=== PATIENT | female | born 1965 | race Caucasian/White ===

== ENCOUNTER 2019-01-16 00:24 | Inpatient (IN) ==
[2019-01-16] MEDS ORDERED: 0.9 % Sodium Chloride 500 ML IVC ONE (00:35)
[2019-01-16] MEDS ORDERED: Ondansetron 4 MG/2 ML VIAL IVP ONE (00:35)
[2019-01-16] MEDS ORDERED: Nitroglycerin 0.4 MG TAB.SUBL SL ONE (00:38)
--- NOTE | 2019-01-16 00:50 | Emergency Department Note ---
Disposition Clinical Impression: Lactic acidosis, Elevated troponin, Elevated liver enzymes, Abnormal CT scan Anemia Qualifiers: Anemia type: unspecified type Qualified Code(s): D64.9 - Anemia, unspecified Chest pain Qualifiers: Chest pain type: unspecified Qualified Code(s): R07.9 - Chest pain, unspecified Community acquired pneumonia Qualifiers: Laterality: right Lung location: lower lobe of lung Qualified Code(s): J18.1 - Lobar pneumonia, unspecified organism Disposition: Admitted As Inpatient Condition: Serious Time of Disposition: 06:10 Chest Pain HPI - General Chief Complaint: ED Chest Pain Stated Complaint: CP/SOB Time Seen by Provider: 01/16/19 00:26 Source: patient, family Mode of arrival: private vehicle Limitations: no limitations Vital Signs Reviewed: Yes Nursing Notes Reviewed: Yes - History of Present Illness HPI Narrative: Patient with Hx of AAA and COPD presents to ED for eval of chest pain. Pain began in the shoulder yesterday and in the chest three days ago. She describes it as a dull pressure sensation with intermittent sharp stabbing pain. This afternoon she also has had epigastric pain and nausea. She describes feeling a little mores short of breath than usual and has had a cough. She states that she has had the cough for about a year though. No recent fever, chills, vomiting, diarrhea, dizziness, vertigo or confusion. No recent med changes. Uses inhalers daily. No change in sputum. No recent travel, leg pain or swelling. Pt complaint: chest pain Onset (ago): day(s) (shoulder pain yesterday. Chest and shoulder today) Duration: intermittent, gradually worsening Onset: during rest, during exertion Pain Location: substernal Severity: severe Severity scale (1-10): 9 Quality: aching, heaviness, sharp Pain Radiation: RUE (shoulder) Improves with: nothing Worsens with: nothing Context: other (vasculopath - hx of AAA, s/p repair in 2009) Associated symptoms: Reports: nausea, dyspnea (a little worse than usual), cough ("for over a year"). Denies: vomiting, diaphoresis, sense of impending doom, syncope, palpitations, fever, leg swelling Treatments prior to arrival chest pain: none - Related Data On Oral Contraceptives: No Home Medications Medication Instructions Recorded Confirmed Aspirin 325 PO DAILY 01/16/19 Clopidogrel 75 PO DAILY 01/16/19 Cyclobenzaprine 10 PO HS PRN 01/16/19 Diclofenac Sodium 75 PO BID 01/16/19 Fish Oil 1,000 PO DAILY 01/16/19 Gabapentin 800 PO TID 01/16/19 Garlic 1,000 PO DAILY 01/16/19 Niacin 500 PO DAILY 01/16/19 Simvastatin 80 PO DAILY 01/16/19 Ventolin Hfa PRN 01/16/19 01/16/19 Vit E/Vit E Mx/Squal/Phytostrl 670 PO DAILY 01/16/19 Vitamin B Complex 100 PO DAILY 01/16/19 Vitamin E, Vitamin A,and Vit D 5,000 PO DAILY 01/16/19 rOPINIRole 2 PO HS 01/16/19 Previous Rx's Medication Instructions Recorded Meclizine HCl [Verticalm] 25 mg PO TID PRN #15 tablet 01/23/17 Allergies Allergy/AdvReac Type Severity Reaction Status Date / Time morphine Allergy Nausea Verified 07/03/15 09:17 All systems ED: reviewed and negative except as stated. Review of Systems: As Per HPI Constitutional: Denies: fever, chills, weakness Eyes: Denies: eye pain, eye discharge, vision change ENT ED: Denies: ear pain, throat pain, congestion, dysphagia Cardiovascular: Reports: as per HPI, chest pain, palpitations, dyspnea on exertion, edema ("feet have been swelling a little"). Denies: orthopnea, syncope, paroxysmal nocturnal dyspnea Respiratory: Reports: as per HPI, cough, dyspnea. Denies: wheezes, hemoptysis, stridor, sputum production Gastrointestinal: Reports: abdominal pain ("a little bit" points to the Epigastrium), nausea. Denies: vomiting, diarrhea, constipation, hematemesis, melena, hematochezia Genitourinary: Denies: urgency, dysuria, frequency, hematuria Musculoskeletal: Denies: back pain, neck pain, joint swelling, arthralgia Integumentary: Denies: rash, lesions Neurological: Denies: headache, weakness, vertigo Endocrine: Denies: fatigue Hematological/Lymphatic: Reports: easy bruising (on plavix) Chest Pain PMH - Past Medical History Medical history: Reports: aortic aneurysm, COPD, coronary artery disease, other Reports: Aortic Disease Surgical history: Reports: vascular surgery Psychiatric history: Reports: no psych history Prior Cardiac Testing/Procedures: Stress Test 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 Absent: scleral icterus, conjunctival injection, periorbital swelling - ENT ENT exam: normal oropharynx, mucous membranes moist - Neck Neck exam: Present: normal inspection, full ROM, trachea midline. Absent: meningismus - Chest Chest inspection: Present: normal inspection, symmetric chest wall rise. Absent: tenderness - Respiratory Respiratory exam: Present: wheezes (faint, end expiratory). Absent: respiratory distress, stridor, accessory muscle use, prolonged expiratory phase - Cardiovascular Cardiovascular exam: Present: normal rhythm, tachycardia, normal heart sounds - Abdominal Exam Abdominal exam: Present: soft, Non-Tender, scar (WHSS xiphoid to pubic symphysis). Absent: distention, guarding, rebound, rigidity, trauma, Monteiro's sign, tenderness at McBurney's Point, mass, bruit, pulsatile mass - Extremities Exam Extremities exam: Present: normal inspection, full ROM, normal capillary refill. Absent: pedal edema (Symmetric, non-edematous), joint swelling, calf tenderness - Expanded Lower Extremity Exam Gait: not tested/not observed - Back Exam Back exam: Present: normal inspection. Absent: tenderness, CVA tenderness (R), CVA tenderness (L) - Neurological Exam Neurological exam: Present: alert, oriented X3, CN II-XII intact. Absent: motor sensory deficit - Psychiatric Psychiatric exam: Present: normal affect, normal mood - Skin Skin exam: Present: warm, dry, intact, normal color Course Course Narrative: Patient with hx of AAA and COPD presented to ED with son for eval of chest pain. She was brought back to room 4, placed on monitor, examined and ECG obtained. Patient appears very pale and is tachycardic in the 120's. She c/o chest pain, abdominal pain and dyspnea, but is able to speak in complete sentences without pausing to breath. She is not tachypneic and does not appear to be in any distress. Labs, meds and fluids ordered. Case discussed with Dr. Robertson. Patient's ECG shows sinus tach with normal intervals. No ST elevation. ST depression in several leads. This appears to be new c/o tracing from 01/22/17. Given her hx of AAA and current complaints of chest and epigastric pain, I am hesitant to order ASA. Her BP is 109 systolic and her ECG shows new ST depression in inferior, septal and lateral leads. She is complaining of increasing chest pain and is requesting something for pain. Discussed options with Dr. Robertson. He recommends trying One SL NTG. Repeat BP just prior to giving the NTG was 94/57. Will hold the NTG. Patient's pain is better. At this point she has had 500ml of NS. Heart rate is improved but still tachy. Sats a little improved - 95% CXR shows bibasilar airspace disease and bilateral pleural effusions. Normal mediastinum. Lactic acid is 4.1 and trop is 0.14 CTA read by rad as right lower lobe infiltrate. BCx2 and ABX ordered. Patient has not been hospitalized in the past 6 months. Lab is unable to report results of CBC despite repeat draw, spin down and several other techniques. They estimate the Hgb to be between 3.8 and 5.3 and hematocrit around 21. They recommend giving the patient blood and then re-drawin g. Case discussed with Dr. Stringer and Dr. Delatorre. They request that the [employer] and Vascular Surgeon electronics warfare technician be consulted by us. Case discussed with Dr. Roy. Read the CTA report for his review and rachel's. He states that he will see the patient in house. Case discussed with Dr. Patel. He states that the troponin leak is most likely second to the anemia - < 7 can cause a leak. He further states that the Vital Signs Temperature 98.2 F 01/16/19 00:25 Pulse Rate 103 01/16/19 00:25 Respiratory Rate 18 01/16/19 00:25 Blood Pressure 105/69 01/16/19 00:25 O2 Sat by Pulse Oximetry 98 01/16/19 00:25 Temperature 98.7 F 01/16/19 16:14 Pulse Rate 120 01/16/19 16:14 Respiratory Rate 20 01/16/19 16:14 Blood Pressure 100/76 01/16/19 16:14 O2 Sat by Pulse Oximetry 98 01/16/19 16:14 Oxygen Delivery Oxygen Delivery Nasal Cannula Chest Pain - Medical Records Medical records reviewed: Yes I reviewed the patient's medical records. - Lab Data Lab results reviewed: Yes I reviewed the patient's lab results. Result diagrams: 01/16/19 13:48 01/16/19 00:30 Lab Results 01/16/19 01/16/19 01/16/19 Range/Units 00:30 00:30 00:30 WBC (4.3-11.1) K/mcL RBC (3.82-4.97) M/mcL Hgb (11.5-15.4) g/dL Hct (35.3-44.9) % MCV (83.0-100.0) fL MCH (28.0-33.3) pg MCHC (31.6-35.5) g/dL RDW (11.5-14.5) % Plt Count (140-400) K/mcL MPV (9.4-12.4) fL Immature Gran % (0-4) % Seg Neutrophils % % Lymphocytes % % Monocytes % % Eosinophils % % Basophils % % Neutrophils # (1.6-8.9) K/mcL Lymphocytes # (0.6-4.6) K/mcL Monocytes # (0.0-1.3) K/mcL Eosinophils # (0.0-0.6) K/mcL Basophils # (0.0-0.2) K/mcL Nucleated RBCs/100 WBC (0) /100 WBC Platelet Estimate (Normal) Hypochromasia (Not Present) Anisocytosis (Not Present) Microcytosis (Not Present) PT 15.0 H (9.4-12.1) Seconds INR 1.3 APTT (26.0-36.0) Seconds Sodium 139 (136-145) mEq/L Potassium 3.9 (3.5-5.1) mEq/L Chloride 109 H (98-107) mEq/L Carbon Dioxide 17 L (23-29) mEq/L BUN 20 (6-20) mg/dL Creatinine 0.95 (0.60-1.20) mg/dL Est GFR ( Amer) > 60 (> 60) Est GFR (Non-Af Amer) > 60 (> 60) BUN/Creatinine Ratio 21 (6-26) Glucose 108 H (70-105) mg/dL Calculated Osmolality 291 (280-300) Lactic Acid (0.5-2.2) mmol/L Calcium 8.7 (8.6-10.3) mg/dL Total Bilirubin 0.8 (0.3-1.0) mg/dL Direct Bilirubin 0.2 (0.0-0.2) mg/dL Indirect Bilirubin 0.6 (0.0-1.2) mg/dL AST 103 H (13-39) Units/L ALT 70 H (7-52) Units/L Alkaline Phosphatase 81 (34-104) Units/L Troponin I 0.14 H* (< 0.04) ng/mL B-Natriuretic Peptide 978 H (Less than 100) pg/mL Serum Total Protein 6.6 (6.4-8.9) g/dL Albumin 3.9 (3.5-5.7) g/dL Globulin 2.7 (2.4-3.5) g/dL Albumin/Globulin Ratio 1.4 (1.1-2.2) Lipase 12 (11-82) Units/L Urine Color (Yellow) Urine Clarity (Clear) Urine pH (5.0-8.0) pH Units Ur Specific [place] (1.010-1.025) Urine Protein (Neg-Trace) mg/dL Urine Glucose (UA) (Normal) mg/dL Urine Ketones (Negative) mg/dL Urine Blood (Negative) Urine Nitrite (Negative) Urine Bilirubin (Negative) Urine Urobilinogen (Normal) mg/dL Ur Leukocyte Esterase (Negative) Urine Microscopic RBC (0-3) per hpf Urine Microscopic WBC (0-3) per hpf Ur Squamous Epith Cells (None-Few) per lpf Ur Renal Epithelial Cell (None-Few) per hpf Urine Bacteria (None-Few) per hpf Hyaline Casts (None-Few) per lpf Urine Mucus (Few) Ur Culture Indicated? (NO) Stool Occult Bld Scrn (Negative) Specimen Rejected Blood Type Antibody Screen Crossmatch 01/16/19 01/16/19 01/16/19 Range/Units 00:30 00:44 00:55 WBC (4.3-11.1) K/mcL RBC (3.82-4.97) M/mcL Hgb (11.5-15.4) g/dL Hct (35.3-44.9) % MCV (83.0-100.0) fL MCH (28.0-33.3) pg MCHC (31.6-35.5) g/dL RDW (11.5-14.5) % Plt Count (140-400) K/mcL MPV (9.4-12.4) fL Immature Gran % (0-4) % Seg Neutrophils % % Lymphocytes % % Monocytes % % Eosinophils % % Basophils % % Neutrophils # (1.6-8.9) K/mcL Lymphocytes # (0.6-4.6) K/mcL Monocytes # (0.0-1.3) K/mcL Eosinophils # (0.0-0.6) K/mcL Basophils # (0.0-0.2) K/mcL Nucleated RBCs/100 WBC (0) /100 WBC Platelet Estimate (Normal) Hypochromasia (Not Present) Anisocytosis (Not Present) Microcytosis (Not Present) PT (9.4-12.1) Seconds INR APTT (26.0-36.0) Seconds Sodium (136-145) mEq/L Potassium (3.5-5.1) mEq/L Chloride (98-107) mEq/L Carbon Dioxide (23-29) mEq/L BUN (6-20) mg/dL Creatinine (0.60-1.20) mg/dL Est GFR ( Amer) (> 60) Est GFR (Non-Af Amer) (> 60) BUN/Creatinine Ratio (6-26) Glucose (70-105) mg/dL Calculated Osmolality (280-300) Lactic Acid 4.1 H* (0.5-2.2) mmol/L Calcium (8.6-10.3) mg/dL Total Bilirubin (0.3-1.0) mg/dL Direct Bilirubin (0.0-0.2) mg/dL Indirect Bilirubin (0.0-1.2) mg/dL AST (13-39) Units/L ALT (7-52) Units/L Alkaline Phosphatase (34-104) Units/L Troponin I (< 0.04) ng/mL B-Natriuretic Peptide (Less than 100) pg/mL Serum Total Protein (6.4-8.9) g/dL Albumin (3.5-5.7) g/dL Globulin (2.4-3.5) g/dL Albumin/Globulin Ratio (1.1-2.2) Lipase (11-82) Units/L Urine Color Dark Yellow (Yellow) Urine Clarity Cloudy A (Clear) Urine pH 5.0 (5.0-8.0) pH Units Ur Specific [place] 1.022 (1.010-1.025) Urine Protein 30 H (Neg-Trace) mg/dL Urine Glucose (UA) Normal (Normal) mg/dL Urine Ketones Negative (Negative) mg/dL Urine Blood Negative (Negative) Urine Nitrite Negative (Negative) Urine Bilirubin Negative (Negative) Urine Urobilinogen Normal (Normal) mg/dL Ur Leukocyte Esterase Small H (Negative) Urine Microscopic RBC 0-3 (0-3) per hpf Urine Microscopic WBC 15-30 H (0-3) per hpf Ur Squamous Epith Cells Many H (None-Few) per lpf Ur Renal Epithelial Cell Few (None-Few) per hpf Urine Bacteria Few (None-Few) per hpf Hyaline Casts Moderate H (None-Few) per lpf Urine Mucus Few (Few) Ur Culture Indicated? YES A (NO) Stool Occult Bld Scrn (Negative) Specimen Rejected Contaminated Blood Type Antibody Screen Crossmatch 01/16/19 01/16/19 01/16/19 Range/Units 01:31 01:31 02:28 WBC 6.0 (4.3-11.1) K/mcL RBC 3.00 L (3.82-4.97) M/mcL Hgb 5.3 L* (11.5-15.4) g/dL Hct 21.3 L (35.3-44.9) % MCV 71.0 L (83.0-100.0) fL MCH 17.7 L (28.0-33.3) pg MCHC 24.9 L (31.6-35.5) g/dL RDW 22.4 H (11.5-14.5) % Plt Count 237 (140-400) K/mcL MPV 9.8 (9.4-12.4) fL Immature Gran % 0.8 (0-4) % Seg Neutrophils % 67.9 % Lymphocytes % 24.0 % Monocytes % 6.4 % Eosinophils % 0.7 % Basophils % 0.2 % Neutrophils # 4.1 (1.6-8.9) K/mcL Lymphocytes # 1.4 (0.6-4.6) K/mcL Monocytes # 0.4 (0.0-1.3) K/mcL Eosinophils # 0.0 (0.0-0.6) K/mcL Basophils # 0.0 (0.0-0.2) K/mcL Nucleated RBCs/100 WBC 0.7 H (0) /100 WBC Platelet Estimate Normal (Normal) Hypochromasia Present A (Not Present) Anisocytosis 1+ A (Not Present) Microcytosis Present A (Not Present) PT (9.4-12.1) Seconds INR APTT (26.0-36.0) Seconds Sodium (136-145) mEq/L Potassium (3.5-5.1) mEq/L Chloride (98-107) mEq/L Carbon Dioxide (23-29) mEq/L BUN (6-20) mg/dL Creatinine (0.60-1.20) mg/dL Est GFR ( Amer) (> 60) Est GFR (Non-Af Amer) (> 60) BUN/Creatinine Ratio (6-26) Glucose (70-105) mg/dL Calculated Osmolality (280-300) Lactic Acid (0.5-2.2) mmol/L Calcium (8.6-10.3) mg/dL Total Bilirubin (0.3-1.0) mg/dL Direct Bilirubin (0.0-0.2) mg/dL Indirect Bilirubin (0.0-1.2) mg/dL AST (13-39) Units/L ALT (7-52) Units/L Alkaline Phosphatase (34-104) Units/L Troponin I (< 0.04) ng/mL B-Natriuretic Peptide (Less than 100) pg/mL Serum Total Protein (6.4-8.9) g/dL Albumin (3.5-5.7) g/dL Globulin (2.4-3.5) g/dL Albumin/Globulin Ratio (1.1-2.2) Lipase (11-82) Units/L Urine Color (Yellow) Urine Clarity (Clear) Urine pH (5.0-8.0) pH Units Ur Specific [place] (1.010-1.025) Urine Protein (Neg-Trace) mg/dL Urine Glucose (UA) (Normal) mg/dL Urine Ketones (Negative) mg/dL Urine Blood (Negative) Urine Nitrite (Negative) Urine Bilirubin (Negative) Urine Urobilinogen (Normal) mg/dL Ur Leukocyte Esterase (Negative) Urine Microscopic RBC (0-3) per hpf Urine Microscopic WBC (0-3) per hpf Ur Squamous Epith Cells (None-Few) per lpf Ur Renal Epithelial Cell (None-Few) per hpf Urine Bacteria (None-Few) per hpf Hyaline Casts (None-Few) per lpf Urine Mucus (Few) Ur Culture Indicated? (NO) Stool Occult Bld Scrn (Negative) Specimen Rejected Miscellaneous Blood Type O POSITIVE Antibody Screen NEGATIVE Crossmatch See Detail 01/16/19 01/16/19 01/16/19 Range/Units 03:30 03:30 03:50 WBC (4.3-11.1) K/mcL RBC (3.82-4.97) M/mcL Hgb (11.5-15.4) g/dL Hct (35.3-44.9) % MCV (83.0-100.0) fL MCH (28.0-33.3) pg MCHC (31.6-35.5) g/dL RDW (11.5-14.5) % Plt Count (140-400) K/mcL MPV (9.4-12.4) fL Immature Gran % (0-4) % Seg Neutrophils % % Lymphocytes % % Monocytes % % Eosinophils % % Basophils % % Neutrophils # (1.6-8.9) K/mcL Lymphocytes # (0.6-4.6) K/mcL Monocytes # (0.0-1.3) K/mcL Eosinophils # (0.0-0.6) K/mcL Basophils # (0.0-0.2) K/mcL Nucleated RBCs/100 WBC (0) /100 WBC Platelet Estimate (Normal) Hypochromasia (Not Present) Anisocytosis (Not Present) Microcytosis (Not Present) PT (9.4-12.1) Seconds INR APTT 25.8 L (26.0-36.0) Seconds Sodium (136-145) mEq/L Potassium (3.5-5.1) mEq/L Chloride (98-107) mEq/L Carbon Dioxide (23-29) mEq/L BUN (6-20) mg/dL Creatinine (0.60-1.20) mg/dL Est GFR ( Amer) (> 60) Est GFR (Non-Af Amer) (> 60) BUN/Creatinine Ratio (6-26) Glucose (70-105) mg/dL Calculated Osmolality (280-300) Lactic Acid 3.4 H (0.5-2.2) mmol/L Calcium (8.6-10.3) mg/dL Total Bilirubin (0.3-1.0) mg/dL Direct Bilirubin (0.0-0.2) mg/dL Indirect Bilirubin (0.0-1.2) mg/dL AST (13-39) Units/L ALT (7-52) Units/L Alkaline Phosphatase (34-104) Units/L Troponin I (< 0.04) ng/mL B-Natriuretic Peptide (Less than 100) pg/mL Serum Total Protein (6.4-8.9) g/dL Albumin (3.5-5.7) g/dL Globulin (2.4-3.5) g/dL Albumin/Globulin Ratio (1.1-2.2) Lipase (11-82) Units/L Urine Color (Yellow) Urine Clarity (Clear) Urine pH (5.0-8.0) pH Units Ur Specific [place] (1.010-1.025) Urine Protein (Neg-Trace) mg/dL Urine Glucose (UA) (Normal) mg/dL Urine Ketones (Negative) mg/dL Urine Blood (Negative) Urine Nitrite (Negative) Urine Bilirubin (Negative) Urine Urobilinogen (Normal) mg/dL Ur Leukocyte Esterase (Negative) Urine Microscopic RBC (0-3) per hpf Urine Microscopic WBC (0-3) per hpf Ur Squamous Epith Cells (None-Few) per lpf Ur Renal Epithelial Cell (None-Few) per hpf Urine Bacteria (None-Few) per hpf Hyaline Casts (None-Few) per lpf Urine Mucus (Few) Ur Culture Indicated? (NO) Stool Occult Bld Scrn Negative (Negative) Specimen Rejected Blood Type Antibody Screen Crossmatch 01/16/19 Range/Units 05:08 WBC (4.3-11.1) K/mcL RBC (3.82-4.97) M/mcL Hgb (11.5-15.4) g/dL Hct (35.3-44.9) % MCV (83.0-100.0) fL MCH (28.0-33.3) pg MCHC (31.6-35.5) g/dL RDW (11.5-14.5) % Plt Count (140-400) K/mcL MPV (9.4-12.4) fL Immature Gran % (0-4) % Seg Neutrophils % % Lymphocytes % % Monocytes % % Eosinophils % % Basophils % % Neutrophils # (1.6-8.9) K/mcL Lymphocytes # (0.6-4.6) K/mcL Monocytes # (0.0-1.3) K/mcL Eosinophils # (0.0-0.6) K/mcL Basophils # (0.0-0.2) K/mcL Nucleated RBCs/100 WBC (0) /100 WBC Platelet Estimate (Normal) Hypochromasia (Not Present) Anisocytosis (Not Present) Microcytosis (Not Present) PT (9.4-12.1) Seconds INR APTT (26.0-36.0) Seconds Sodium (136-145) mEq/L Potassium (3.5-5.1) mEq/L Chloride (98-107) mEq/L Carbon Dioxide (23-29) mEq/L BUN (6-20) mg/dL Creatinine (0.60-1.20) mg/dL Est GFR ( Amer) (> 60) Est GFR (Non-Af Amer) (> 60) BUN/Creatinine Ratio (6-26) Glucose (70-105) mg/dL Calculated Osmolality (280-300) Lactic Acid 2.8 H (0.5-2.2) mmol/L Calcium (8.6-10.3) mg/dL Total Bilirubin (0.3-1.0) mg/dL Direct Bilirubin (0.0-0.2) mg/dL Indirect Bilirubin (0.0-1.2) mg/dL AST (13-39) Units/L ALT (7-52) Units/L Alkaline Phosphatase (34-104) Units/L Troponin I (< 0.04) ng/mL B-Natriuretic Peptide (Less than 100) pg/mL Serum Total Protein (6.4-8.9) g/dL Albumin (3.5-5.7) g/dL Globulin (2.4-3.5) g/dL Albumin/Globulin Ratio (1.1-2.2) Lipase (11-82) Units/L Urine Color (Yellow) Urine Clarity (Clear) Urine pH (5.0-8.0) pH Units Ur Specific [place] (1.010-1.025) Urine Protein (Neg-Trace) mg/dL Urine Glucose (UA) (Normal) mg/dL Urine Ketones (Negative) mg/dL Urine Blood (Negative) Urine Nitrite (Negative) Urine Bilirubin (Negative) Urine Urobilinogen (Normal) mg/dL Ur Leukocyte Esterase (Negative) Urine Microscopic RBC (0-3) per hpf Urine Microscopic WBC (0-3) per hpf Ur Squamous Epith Cells (None-Few) per lpf Ur Renal Epithelial Cell (None-Few) per hpf Urine Bacteria (None-Few) per hpf Hyaline Casts (None-Few) per lpf Urine Mucus (Few) Ur Culture Indicated? (NO) Stool Occult Bld Scrn (Negative) Specimen Rejected Blood Type Antibody Screen Crossmatch - Radiology Data Radiology results reviewed: Yes I reviewed the patient's radiology results. - EKG Data EKG attestation: Yes I reviewed and interpreted this EKG. EKG shows normal: sinus rhythm Rate: tachycardia Rhythm: NSR ST segment depression in: III, v2, v3, v4, v5 When compared to previous EKG there are: changes noted Interpretation: nonspecific ST-T wave changes - Core Measures AMI Core Measures Followed: No (ASA initially ordered, but then cancelled due to concern for possible bleed) Measure Exclusions: contraindicated (NTG also intially ordered, then held due to change in BP w/ systolic <100.) Heart Score - Score History: Moderately Suspicious EKG: Significant ST-Depression Age: 45-65 Risk Factors: Equal/Greater than 3 risk factor or history of atherosclerotic disease Troponin: Greater than 3x normal limit HEART Score Total: 8 Sepsis Reassessment Note - Evaluation Current Stage of Sepsis: septic shock Possible Source of Sepsis: pulmonary - Focused Exam Date of Encounter: 01/16/19 Time of Encounter: 03:28 Respiratory Exam: Present: rales Cardiovascular Exam: Present: tachycardia Capillary Refill: > 2 seconds Peripheral Pulse Strength: 2+ slightly diminished Peripheral Pulse Location: Radial Skin Exam: pale (stable, normal mental status)
[2019-01-16 00:58] LABS: INR 1.3
[2019-01-16 01:01] LABS: Bilirubin,Urine Negative (Negative); Blood,Urine Negative (Negative); Clarity,Urine Cloudy (Clear); Color,Urine Dark Yellow (Yellow); Glucose,Urine (UA) Normal (Normal); Ketones,Urine Negative (Negative); Leukocyte Esterase,Urine Small (Negative); Nitrite,Urine Negative (Negative); Protein,Urine 30 mg/dL (Neg-Trace); Specific Gravity,Urine 1.022 (1.010-1.025); Urobilinogen,Urine Normal (Normal)
[2019-01-16 01:02] LABS: Hyaline Casts,Urine Moderate per lpf (None-Few); RBC,Urine 0-3 per hpf (0-3); Squamous Epithelial Cell,Urine Many per lpf (None-Few); WBC,Urine 15-30 per hpf (0-3)
[2019-01-16 01:04] LABS: Alanine Aminotransferase 70 Units/L (7-52); Albumin 3.9 g/dL (3.5-5.7); Albumin/Globulin Ratio 1.4 (1.1-2.2); Alkaline Phosphatase 81 Units/L (34-104); Aspartate Amino Transferase 103 Units/L (13-39); BUN/Creatinine Ratio 21 (6-26); Bilirubin,Direct 0.2 mg/dL (0.0-0.2); Bilirubin,Indirect 0.6 mg/dL (0.0-1.2); Bilirubin,Total 0.8 mg/dL (0.3-1.0); Blood Urea Nitrogen 20 mg/dL (6-20); Calcium 8.7 mg/dL (8.6-10.3); Carbon Dioxide 17 mEq/L (23-29); Chloride 109 mEq/L (98-107); Globulin 2.7 g/dL (2.4-3.5); Glucose 108 mg/dL (70-105); Lipase 12 Units/L (11-82); Osmolality,Calculated 291 (280-300); Potassium 3.9 mEq/L (3.5-5.1); Sodium 139 mEq/L (136-145); Total Protein 6.6 g/dL (6.4-8.9); eGFR For African Americans > 60 (> 60); eGFR For Non-African Americans > 60 (> 60)
[2019-01-16 01:11] LABS: Bacteria,Urine Few per hpf (None-Few); Mucus,Urine Few (Few); Renal Epithelial Cells,Urine Few per hpf (None-Few)
[2019-01-16 01:20] LABS: Troponin I 0.14 ng/mL (< 0.04)
[2019-01-16] MEDS: 0.9 % Sodium Chloride 1,000 ML IVC ONE ×2 (01:27→01:29)
[2019-01-16] MEDS ORDERED: Isovue-370 500 ML BOTTLE IVP ONE (01:29)
[2019-01-16] MEDS ORDERED: cefTRIAXone 1,000 MG in 0.9 % Sodium Chloride Mini Bag 100 ML IVPB ONE ×2 (02:42→03:08)
[2019-01-16] MEDS ORDERED: Azithromycin 500 MG in D5% in Water 250 ML IVPB ONE (02:42)
--- NOTE | 2019-01-16 02:59 | Emergency Department Note ---
Disposition Clinical Impression: Lactic acidosis, Elevated troponin, Elevated liver enzymes, Abnormal CT scan Anemia Qualifiers: Anemia type: unspecified type Qualified Code(s): D64.9 - Anemia, unspecified Chest pain Qualifiers: Chest pain type: unspecified Qualified Code(s): R07.9 - Chest pain, unspecified Community acquired pneumonia Qualifiers: Laterality: right Lung location: lower lobe of lung Qualified Code(s): J18.1 - Lobar pneumonia, unspecified organism Disposition: Admitted As Inpatient Condition: Serious Referrals: Mary Kate Denny CNP [Primary Care Provider] - Forms: ED Satisfaction Letter Time of Disposition: 05:30 General Adult HPI - General Chief complaint: ED Chest Pain Stated complaint: CP/SOB Time Seen by Provider: 01/16/19 00:26 Source: patient, family Mode of arrival: private vehicle Limitations: no limitations Nursing Notes Reviewed: Yes Vital Signs Reviewed: Yes - History of Present Illness Pain Scale: 9 - Related Data Home Medications Medication Instructions Recorded Confirmed Aspirin 325 PO DAILY 01/16/19 Clopidogrel 75 PO DAILY 01/16/19 Cyclobenzaprine 10 PO HS PRN 01/16/19 Diclofenac Sodium 75 PO BID 01/16/19 Fish Oil 1,000 PO DAILY 01/16/19 Gabapentin 800 PO TID 01/16/19 Garlic 1,000 PO DAILY 01/16/19 Niacin 500 PO DAILY 01/16/19 Simvastatin 80 PO DAILY 01/16/19 Ventolin Hfa PRN 01/16/19 01/16/19 Vit E/Vit E Mx/Squal/Phytostrl 670 PO DAILY 01/16/19 Vitamin B Complex 100 PO DAILY 01/16/19 Vitamin E, Vitamin A,and Vit D 5,000 PO DAILY 01/16/19 rOPINIRole 2 PO HS 01/16/19 Previous Rx's Medication Instructions Recorded Meclizine HCl [Verticalm] 25 mg PO TID PRN #15 tablet 01/23/17 Allergies Allergy/AdvReac Type Severity Reaction Status Date / Time morphine Allergy Nausea Verified 07/03/15 09:17 Constitutional: Denies: fever, chills, weakness Eyes: Denies: eye pain, eye discharge, vision change ENT ED: Denies: ear pain, throat pain, congestion, dysphagia Cardiovascular: Reports: as per HPI, chest pain, palpitations, dyspnea on exertion, edema ("feet have been swelling a little"). Denies: orthopnea, syncope, paroxysmal nocturnal dyspnea Respiratory: Reports: as per HPI, cough, dyspnea. Denies: wheezes, hemoptysis, stridor, sputum production Gastrointestinal: Reports: abdominal pain ("a little bit" points to the Epigas trium), nausea. Denies: vomiting, diarrhea, constipation, hematemesis, melena, hematochezia Genitourinary: Denies: urgency, dysuria, frequency, hematuria Musculoskeletal: Denies: back pain, neck pain, joint swelling, arthralgia Integumentary: Denies: rash, lesions Neurological: Denies: headache, weakness, vertigo Endocrine: Denies: fatigue Hematological/Lymphatic: Reports: easy bruising (on plavix) Past Medical History - Past Medical History Medical history: Reports: aortic aneurysm, COPD, coronary artery disease, other Surgical history: Reports: vascular surgery Psychiatric history: Reports: no psych history 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 history - Social History Smoking Status: Current every day smoker Smokeless Tobacco Status: No Alcohol use: Reports: none Drug use: Reports: none Physical Exam - General Limitations: no limitations General appearance: alert, in no apparent distress Course Vital Signs Temperature 98.2 F 01/16/19 00:25 Pulse Rate 103 01/16/19 00:25 Respiratory Rate 18 01/16/19 00:25 Blood Pressure 105/69 01/16/19 00:25 O2 Sat by Pulse Oximetry 98 01/16/19 00:25 Temperature 97.6 F 01/16/19 04:10 Pulse Rate 113 01/16/19 05:56 Respiratory Rate 17 01/16/19 05:56 Blood Pressure 104/67 01/16/19 05:56 O2 Sat by Pulse Oximetry 99 01/16/19 05:56 Oxygen Delivery Oxygen Delivery Nasal Cannula Medical Decision Making - Medical Records Medical records reviewed: Yes I reviewed the patient's medical records. - Lab Data Lab results reviewed: Yes I reviewed the patient's lab results. Result diagrams: 01/16/19 00:30 Lab Results 01/16/19 01/16/19 01/16/19 Range/Units 00:30 00:30 00:30 PT 15.0 H (9.4-12.1) Seconds INR 1.3 APTT (26.0-36.0) Seconds Sodium 139 (136-145) mEq/L Potassium 3.9 (3.5-5.1) mEq/L Chloride 109 H (98-107) mEq/L Carbon Dioxide 17 L (23-29) mEq/L BUN 20 (6-20) mg/dL Creatinine 0.95 (0.60-1.20) mg/dL Est GFR ( Amer) > 60 (> 60) Est GFR (Non-Af Amer) > 60 (> 60) BUN/Creatinine Ratio 21 (6-26) Glucose 108 H (70-105) mg/dL Calculated Osmolality 291 (280-300) Lactic Acid (0.5-2.2) mmol/L Calcium 8.7 (8.6-10.3) mg/dL Total Bilirubin 0.8 (0.3-1.0) mg/dL Direct Bilirubin 0.2 (0.0-0.2) mg/dL Indirect Bilirubin 0.6 (0.0-1.2) mg/dL AST 103 H (13-39) Units/L ALT 70 H (7-52) Units/L Alkaline Phosphatase 81 (34-104) Units/L Troponin I 0.14 H* (< 0.04) ng/mL B-Natriuretic Peptide 978 H (Less than 100) pg/mL Serum Total Protein 6.6 (6.4-8.9) g/dL Albumin 3.9 (3.5-5.7) g/dL Globulin 2.7 (2.4-3.5) g/dL Albumin/Globulin Ratio 1.4 (1.1-2.2) Lipase 12 (11-82) Units/L Urine Color (Yellow) Urine Clarity (Clear) Urine pH (5.0-8.0) pH Units Ur Specific [place] (1.010-1.025) Urine Protein (Neg-Trace) mg/dL Urine Glucose (UA) (Normal) mg/dL Urine Ketones (Negative) mg/dL Urine Blood (Negative) Urine Nitrite (Negative) Urine Bilirubin (Negative) Urine Urobilinogen (Normal) mg/dL Ur Leukocyte Esterase (Negative) Urine Microscopic RBC (0-3) per hpf Urine Microscopic WBC (0-3) per hpf Ur Squamous Epith Cells (None-Few) per lpf Ur Renal Epithelial Cell (None-Few) per hpf Urine Bacteria (None-Few) per hpf Hyaline Casts (None-Few) per lpf Urine Mucus (Few) Ur Culture Indicated? (NO) Stool Occult Bld Scrn (Negative) Specimen Rejected Blood Type Antibody Screen Crossmatch 01/16/19 01/16/19 01/16/19 Range/Units 00:30 00:44 00:55 PT (9.4-12.1) Seconds INR APTT (26.0-36.0) Seconds Sodium (136-145) mEq/L Potassium (3.5-5.1) mEq/L Chloride (98-107) mEq/L Carbon Dioxide (23-29) mEq/L BUN (6-20) mg/dL Creatinine (0.60-1.20) mg/dL Est GFR ( Amer) (> 60) Est GFR (Non-Af Amer) (> 60) BUN/Creatinine Ratio (6-26) Glucose (70-105) mg/dL Calculated Osmolality (280-300) Lactic Acid 4.1 H* (0.5-2.2) mmol/L Calcium (8.6-10.3) mg/dL Total Bilirubin (0.3-1.0) mg/dL Direct Bilirubin (0.0-0.2) mg/dL Indirect Bilirubin (0.0-1.2) mg/dL AST (13-39) Units/L ALT (7-52) Units/L Alkaline Phosphatase (34-104) Units/L Troponin I (< 0.04) ng/mL B-Natriuretic Peptide (Less than 100) pg/mL Serum Total Protein (6.4-8.9) g/dL Albumin (3.5-5.7) g/dL Globulin (2.4-3.5) g/dL Albumin/Globulin Ratio (1.1-2.2) Lipase (11-82) Units/L Urine Color Dark Yellow (Yellow) Urine Clarity Cloudy A (Clear) Urine pH 5.0 (5.0-8.0) pH Units Ur Specific [place] 1.022 (1.010-1.025) Urine Protein 30 H (Neg-Trace) mg/dL Urine Glucose (UA) Normal (Normal) mg/dL Urine Ketones Negative (Negative) mg/dL Urine Blood Negative (Negative) Urine Nitrite Negative (Negative) Urine Bilirubin Negative (Negative) Urine Urobilinogen Normal (Normal) mg/dL Ur Leukocyte Esterase Small H (Negative) Urine Microscopic RBC 0-3 (0-3) per hpf Urine Microscopic WBC 15-30 H (0-3) per hpf Ur Squamous Epith Cells Many H (None-Few) per lpf Ur Renal Epithelial Cell Few (None-Few) per hpf Urine Bacteria Few (None-Few) per hpf Hyaline Casts Moderate H (None-Few) per lpf Urine Mucus Few (Few) Ur Culture Indicated? YES A (NO) Stool Occult Bld Scrn (Negative) Specimen Rejected Contaminated Blood Type Antibody Screen Crossmatch 01/16/19 01/16/19 01/16/19 Range/Units 02:28 03:30 03:30 PT (9.4-12.1) Seconds INR APTT 25.8 L (26.0-36.0) Seconds Sodium (136-145) mEq/L Potassium (3.5-5.1) mEq/L Chloride (98-107) mEq/L Carbon Dioxide (23-29) mEq/L BUN (6-20) mg/dL Creatinine (0.60-1.20) mg/dL Est GFR ( Amer) (> 60) Est GFR (Non-Af Amer) (> 60) BUN/Creatinine Ratio (6-26) Glucose (70-105) mg/dL Calculated Osmolality (280-300) Lactic Acid 3.4 H (0.5-2.2) mmol/L Calcium (8.6-10.3) mg/dL Total Bilirubin (0.3-1.0) mg/dL Direct Bilirubin (0.0-0.2) mg/dL Indirect Bilirubin (0.0-1.2) mg/dL AST (13-39) Units/L ALT (7-52) Units/L Alkaline Phosphatase (34-104) Units/L Troponin I (< 0.04) ng/mL B-Natriuretic Peptide (Less than 100) pg/mL Serum Total Protein (6.4-8.9) g/dL Albumin (3.5-5.7) g/dL Globulin (2.4-3.5) g/dL Albumin/Globulin Ratio (1.1-2.2) Lipase (11-82) Units/L Urine Color (Yellow) Urine Clarity (Clear) Urine pH (5.0-8.0) pH Units Ur Specific [place] (1.010-1.025) Urine Protein (Neg-Trace) mg/dL Urine Glucose (UA) (Normal) mg/dL Urine Ketones (Negative) mg/dL Urine Blood (Negative) Urine Nitrite (Negative) Urine Bilirubin (Negative) Urine Urobilinogen (Normal) mg/dL Ur Leukocyte Esterase (Negative) Urine Microscopic RBC (0-3) per hpf Urine Microscopic WBC (0-3) per hpf Ur Squamous Epith Cells (None-Few) per lpf Ur Renal Epithelial Cell (None-Few) per hpf Urine Bacteria (None-Few) per hpf Hyaline Casts (None-Few) per lpf Urine Mucus (Few) Ur Culture Indicated? (NO) Stool Occult Bld Scrn (Negative) Specimen Rejected Blood Type O POSITIVE Antibody Screen NEGATIVE Crossmatch See Detail 01/16/19 01/16/19 Range/Units 03:50 05:08 PT (9.4-12.1) Seconds INR APTT (26.0-36.0) Seconds Sodium (136-145) mEq/L Potassium (3.5-5.1) mEq/L Chloride (98-107) mEq/L Carbon Dioxide (23-29) mEq/L BUN (6-20) mg/dL Creatinine (0.60-1.20) mg/dL Est GFR ( Amer) (> 60) Est GFR (Non-Af Amer) (> 60) BUN/Creatinine Ratio (6-26) Glucose (70-105) mg/dL Calculated Osmolality (280-300) Lactic Acid 2.8 H (0.5-2.2) mmol/L Calcium (8.6-10.3) mg/dL Total Bilirubin (0.3-1.0) mg/dL Direct Bilirubin (0.0-0.2) mg/dL Indirect Bilirubin (0.0-1.2) mg/dL AST (13-39) Units/L ALT (7-52) Units/L Alkaline Phosphatase (34-104) Units/L Troponin I (< 0.04) ng/mL B-Natriuretic Peptide (Less than 100) pg/mL Serum Total Protein (6.4-8.9) g/dL Albumin (3.5-5.7) g/dL Globulin (2.4-3.5) g/dL Albumin/Globulin Ratio (1.1-2.2) Lipase (11-82) Units/L Urine Color (Yellow) Urine Clarity (Clear) Urine pH (5.0-8.0) pH Units Ur Specific [place] (1.010-1.025) Urine Protein (Neg-Trace) mg/dL Urine Glucose (UA) (Normal) mg/dL Urine Ketones (Negative) mg/dL Urine Blood (Negative) Urine Nitrite (Negative) Urine Bilirubin (Negative) Urine Urobilinogen (Normal) mg/dL Ur Leukocyte Esterase (Negative) Urine Microscopic RBC (0-3) per hpf Urine Microscopic WBC (0-3) per hpf Ur Squamous Epith Cells (None-Few) per lpf Ur Renal Epithelial Cell (None-Few) per hpf Urine Bacteria (None-Few) per hpf Hyaline Casts (None-Few) per lpf Urine Mucus (Few) Ur Culture Indicated? (NO) Stool Occult Bld Scrn Negative (Negative) Specimen Rejected Blood Type Antibody Screen Crossmatch - Radiology Data Radiology results reviewed: Yes I reviewed the patient's radiology results. Chest X-Ray 01/16/19 00:35 IMPRESSION: Bilateral pleural effusions, greater on the right with associated bibasilar airspace disease. Prominence of the interstitial markings. Correlation for interstitial edema is recommended. D/ / Sunshine De La Torre Cha, MD / Sunshine De La Torre Cha, MD Interpreting Provider: Sunshine De La Torre Cha, MD Dissection 01/16/19 01:29 IMPRESSION: Minimal mural irregularity of the descending aorta of uncertain acuity. No discrete dissection is identified. This may represent developing aortic ulceration without associated inflammatory change. 3.0 cm infrarenal abdominal aortic aneurysm with eccentric mural thrombus. 3 year follow-up CT is advised to document continued stability. 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 Biliary dilatation; consider MRCP for further characterization. Enlarged mediastinal lymph nodes possibly reactive in nature. Airspace disease in the right lower lung suspicious of pneumonia. Emphysema. D/ / Jose Arechiga / Jose Arechiga Interpreting Provider: Jose Arechiga - EKG Data EKG #1 EKG attestation: Yes I reviewed and interpreted this EKG. EKG results narrative: EKG shows sinus tachycardia with ventricular rate of 122. Inferior and anterolateral ST segment depressions with anterolateral T-wave inversions in V4 through V6. These changes were not present on prior EKG from 01/22/2017. Critical Care Time Critical Care Time: Yes Total Critical Care Time: 60 Attestation: Critical care performed: Time is exclusive of separately billable procedures. Time includes: direct patient care, patient reassessment, coordination of patient care, interpretation of data (laboratory data, radiology data, and respiratory data), review of patient's medical records, medical consultation and documentation of patient care. Procedures included in critical care time: Procedures excluded from critical care time: Attestation Statement - Attestation Attestation: I, Harsh Robertson MD, personally evaluated this patient and discussed their management with the midlevel provicer, PAC/P[employer]LE [employer]. I reviewed the midlevel provider's note and agree with the documented findings, medical decision making, and plan of care. 53-year-old female presents to the emergency department with a complaint of chest pain which has been constant for the past 3 days. She describes it as a dull pressure and discomfort in the mid substernal region. She also has intermittent sharp pains in the epigastric region as well as pain in the right scapular area and the trapezius muscle radiating up the back right side of the neck. She does admit to increased shortness of breath especially with any exertion or with lying flat. She has had some increased cough. No fever. No p rior history of coronary artery disease but she does have a history of stents in her aorta and also surgery on her aorta. Her last procedure was in 2009. She has a history of COPD. She uses inhalers at home but is not on home oxygen and does not have nebulizers at home. She has no back pain other than in the upper scapular region. On examination patient is a well-developed thin female in no acute distress. She is alert and oriented 3. There is no cyanosis or diaphoresis. She does appear extremely pale. Chest is nontender to palpation. There is some tenderness to palpation over the right trapezius muscle. She does have JVD sitting upright. Breath sounds are decreased but equal bilaterally. There are a few bibasilar rales, right greater than left. No wheezes noted. Heart regu lar with a moderate tachycardia. Abdomen is soft and nontender with normal bowel sounds. There is trace pedal edema bilaterally. EKG shows sinus tachycardia with ventricular rate of 122. Inferior and anterolateral ST segment depressions with anterolateral T-wave inversions in V4 through V6. These changes were not present on prior EKG from 01/22/2017. Chest x-ray shows bilateral pleural effusions greater on the right with associated bibasilar airspace disease. Prominence of the interstitial markings, correlation for interstitial edema as recommended. CTA dissection study shows no discrete dissection. There is a 3 cm infrarenal abdominal aortic aneurysm with mural thrombus anterior follow-up CT is advised. 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 Biliary dilatation, consider MRCP for further evaluation. Enlarged mediastinal lymph nodes possibly reactive in nature. Airspace disease in the right lower lobe suspicious of pneumonia. Emphysema. Labs reviewed. Lab was unable to report a CBC due to some technical difficulties. They did note that on the original blood drawn by the nurse and sent to the lab data hemoglobin measured 3.5 and on repeat attempt drawn by the pasteurizing supervisor the hemoglobin was 5.3. They did report that on spending of blood down that there was definitely significant decrease in red blood cells and the patient does likely need blood transfusion. Troponin 0.14. BNP 978. Lactic acid 4.1. Patient was tachycardic and hypotensive however due to her presentation we were concerned about CHF and were reluctant to the aggressive with fluids. Patient clinically appears to be markedly anemic and we will go ahead and start transfusion of PRBCs. X-ray and CT also suggestive of pneumonia in the right lower lobe. Blood cultures were obtained and antibiotics initiated. Patient meets septic shock criteria. The hospitalist, Dr. Beatty, was consulted regarding admission and requested that we consult cardiology as well as vascular surgery to help manage this complicated patient. Cardiology, Dr. Patel, was consulted and felt the heart was not likely the primary problem and that the elevated troponin was likely from the anemia. He recommended treating the anemia first and rechecking CBC after transfusion. No heparin and repeat EKG every 30 minutes of chest pain continues. The vascular surgeon solution consultant, Dr. Roy, was consulted and had no specific recommendations but will consult on the patient in the hospital. The hospitalist, Dr. Beatty, evaluated patient in the emergency department and accepted admission of the patient to the hospitalist service.
[2019-01-16] MEDS ORDERED: Aspirin 325 MG TABLET PO ONE (03:27)
--- NOTE | 2019-01-16 06:02 | Internal Med History&Physical ---
<Turner Bruce - Last Filed: 01/16/19 09:21> Date of Encounter: 01/16/19 Time of Encounter: 06:13 Internal Medicine - H&P: HPI History of present illness: Ms. Fernando is a 53-year-old female with a PMH of AAA, CAD, and COPD who presented to [facility] on 01/16/19 with a chief complaint of chest pain. Reported that it began in her shoulder yesterday, and in her chest 3 days ago. Pain was described as a dull pressure-like sensation associated with intermittent sharp, stabbing pain. Also reported some epigastric pain, nausea, and mild shortness of breath. Upon arrival, vital signs demonstrated an elevated heart rate at 110 bpm and low blood pressure at 96/63. Labs were significant for an elevated lactate at 4.1, BNP 978, AST 103, ALT 70, and elevated troponin at 0.14. Subsequent lactate was 3.4. CXR demonstrated bilateral pleural effusions, greater on right with associated bibasilar airspace disease, prominent interstitial markings. CT dissection demonstrated minimal mural irregularity of the ascending aorta of uncertain acuity, possibly representing an aortic ulceration. There is also a 3 cm infrarenal abdominal aortic aneurysm with an eccentric mural thrombus. There was also airspace disease in the right lower lobe suspicious for pneumonia. She was noted to be very pale in the emergency department. EKG demonstrated sinus tachycardia without any signs of ST elevation; ST depression was present in several leads. These findings appeared to be new compared to previous. Per ER note, a CBC was ordered, but lab was unable to report results. They estimate the hemoglobin to be between 3.8 and 5.3 and hematocrit around 21. Patient was given a one-time dose of Rocephin and Zithromax. Was also given a loading dose of aspirin 325 mg. 2 units of packed red blood cells were ordered. During interview, patient states that she is feeling better than when she first came in. She does complain of some right-sided shoulder pain, but currently denies having active chest or abdominal pain. She reports that she has a history of aortic stenting back in 2009 due to a blockage that she had. She used to follow with a vascular surgeon at [facility], but has not seen him in several years. She is on aspirin and Plavix for stent was placed there, and reports compliance with her medications. She denies any hematemesis or blood in her stool. She reports swelling in lower extremities. Reports occasional shortness of breath, but none during my interview. She has no further complaints. Vascular surgery has been consulted for findings demonstrated on CT scan. She is being transfused with packed red blood cells. We will obtain a CBC once this is completed. Past Med Surg Social Fam HX - Past Medical History Medical history: aortic aneurysm, COPD, coronary artery disease, other Additional medical history: AAA Psychiatric history: no psych history - Past Surgical History Surgical History: vascular surgery Additional surgical history: AAA repair - Social History Smoking Status: Current every day smoker Smokeless Tobacco Status: No Alcohol use: none Drug use: none Internal Medicine - H&P: Meds Meclizine HCl [Verticalm] 25 mg PO TID PRN #15 tablet 01/23/17 [Rx] Aspirin 325 PO DAILY 01/16/19 [History] Clopidogrel 75 PO DAILY 01/16/19 [History] Cyclobenzaprine 10 PO HS PRN 01/16/19 [History] Diclofenac Sodium 75 PO BID 01/16/19 [History] Fish Oil 1,000 PO DAILY 01/16/19 [History] Gabapentin 800 PO TID 01/16/19 [History] Garlic 1,000 PO DAILY 01/16/19 [History] Niacin 500 PO DAILY 01/16/19 [History] Simvastatin 80 PO DAILY 01/16/19 [History] Ventolin Hfa PRN 01/16/19 [History] Vit E/Vit E Mx/Squal/Phytostrl 670 PO DAILY 01/16/19 [History] Vitamin B Complex 100 PO DAILY 01/16/19 [History] Vitamin E, Vitamin A,and Vit D 5,000 PO DAILY 01/16/19 [History] rOPINIRole 2 PO HS 01/16/19 [History] Allergy/AdvReac Type Severity Reaction Status Date / Time morphine Allergy Nausea Verified 07/03/15 09:17 All Systems PM: A 10-system review of systems was performed and is negative for pertinent findings except as documented above in the HPI. - Constitutional Vitals: Temp Pulse Resp BP Pulse Ox 97.6 F 113 17 104/67 99 01/16/19 04:10 01/16/19 05:56 01/16/19 05:56 01/16/19 05:56 01/16/19 05:56 Exam: General: Conversant, thin appearing, pale Head: atraumatic, normocephalic; mucous membrane pallor Eye: PERRL, EOMI, conjuntiva pale Neck: Supple, trachea midline; No lymphadenopathy Respiratory: CTAB. No accessory muscle use, wheezes, rales, or rhonchi Cardiovascular: Tachycardia, +S1, +S2; no murmurs, rubs, gallops Abdomen: Soft, nontender Extremities: warm, radial pulses palpable and symmetrical; +2 pitting edema in the feet bilaterally extending to just above the ankles Psychiatric: Normal affect, normal mood Skin: Dry, intact Internal Med - H&P Results - Labs CBC & Chem 7: 01/16/19 00:30 Labs: BMP 01/16/19 00:30 Sodium 139 Potassium 3.9 Chloride 109 H Carbon Dioxide 17 L BUN 20 Creatinine 0.95 Glucose 108 H Calcium 8.7 Cardiac Enzymes 01/16/19 Range/Units 00:30 Troponin I 0.14 H* (< 0.04) ng/mL Liver Function 01/16/19 Range/Units 00:30 Total Bilirubin 0.8 (0.3-1.0) mg/dL Direct Bilirubin 0.2 (0.0-0.2) mg/dL AST 103 H (13-39) Units/L ALT 70 H (7-52) Units/L Alkaline Phosphatase 81 (34-104) Units/L Albumin 3.9 (3.5-5.7) g/dL Urine 01/16/19 Range/Units 00:44 Urine Color Dark Yellow (Yellow) Urine Clarity Cloudy A (Clear) Urine pH 5.0 (5.0-8.0) pH Units Ur Specific [place] 1.022 (1.010-1.025) Urine Protein 30 H (Neg-Trace) mg/dL Urine Glucose (UA) Normal (Normal) mg/dL - Impressions ITS Impressions Chest X-Ray 01/16/19 00:35 IMPRESSION: Bilateral pleural effusions, greater on the right with associated bibasilar airspace disease. Prominence of the interstitial markings. Correlation for interstitial edema is recommended. D/ / Sunshine De La Torre Cha, MD / Sunshine De La Torre Cha, MD Interpreting Provider: Sunshine De La Torre Cha, MD Dissection 01/16/19 01:29 IMPRESSION: Minimal mural irregularity of the descending aorta of uncertain acuity. No discrete dissection is identified. This may represent developing aortic ulceration without associated inflammatory change. 3.0 cm infrarenal abdominal aortic aneurysm with eccentric mural thrombus. 3 year follow-up CT is advised to document continued stability. 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 Biliary dilatation; consider MRCP for further characterization. Enlarged mediastinal lymph nodes possibly reactive in nature. Airspace disease in the right lower lung suspicious of pneumonia. Emphysema. D/ / Jose Arechiga / Jose Arechiga Interpreting Provider: Jose Arechiga - Assessment and Plan (1) Anemia Status: Acute Assessment and plan: - Patient was very pale on presentation with tachycardia - CBC was drawn, but sample was unable to provide a clear result due to a discrepancy between the hemoglobin and hematocrit - Admitted hemoglobin was between 3.8 and 5.3, and hematocrit around 21 - Etiology is unknown; possible etiologies include internal bleeding, hemolysis - CT dissection demonstrated a minimal mural irregularity of the ascending aorta of uncertain acuity, possibly representing aortic ulceration - Patient was typed and screened and 2 units of packed red blood cells were ordered Plan - Vascular surgery has been consulted for findings on CT scan - Repeat CBC once 2 units of packed red blood cells have been transfused - Trend H/H every 6 hours once CBC results - To r/o hemolytic anemia, we will order reticulocyte count, LDH, haptoglobin - We will also order ferritin and iron profile - Will hold patients ASA and Plavix Qualifiers: Anemia type: unspecified type Qualified Code(s): D64.9 - Anemia, unspecified (2) Elevated troponin Status: Acute Assessment and plan: - Troponin was found to be elevated at 0.14 - Reported a history of chest pain for the last several days - He has a known history of coronary artery disease and vascular disease - EKG demonstrated sinus tachycardia without any signs of ST elevation; ST depression was present in several leads - These findings appeared to be new compared to previous Plan - Cycle troponins to ensure that there downtrending - We will place on telemetry (3) Lactic acidosis Status: Acute Assessment and plan: - Laboratory analysis demonstrated a lactate of 4.1; subsequent was 3.4 - Etiology is unknown at this time; possibly related to vascular issue demonstrated on CT scan Plan - Continue to trend lactate to ensure resolution - Will obtain CBC once patient has been transfused (4) Elevated liver enzymes Status: Acute Assessment and plan: - Patient presented with elevated transaminase levels - Etiology unknown; patient is on a statin Plan - We will order repeat LFTs and a hepatitis profile (5) Edema Status: Acute Assessment and plan: - Patient has +2 pitting edema in her feet extending to the area just above her ankles b/l - She has no known diagnosis of CHF - Note, patient reports that multiple family members including siblings and her father has been diagnosed with CHF - BNP was elevated on labs, and CXR was rated possible vascular congestion Plan: - We will order EV echocardiogram to rule out HF Qualifiers: Qualified Code(s): R60.9 - Edema, unspecified (6) Abnormal CT scan Status: Acute Assessment and plan: - CT scan demonstrated minimal mural irregularity of the ascending aorta of uncertain acuity, possibly representing aortic ulceration - Vascular surgery has been consulted for these findings - Time Spent With Patient Total time spent is greater than 50% in coordination of care (as documented) at patient's floor/unit and/or counseling patient: <Helen Delatorre - Last Filed: 01/16/19 19:11> Date of Encounter: 01/16/19 All Systems PM: A 10-system review of systems was performed and is negative for pertinent fin dings except as documented above in the HPI. - Constitutional Vitals: Temp Pulse Resp BP Pulse Ox 97.6 F 113 17 104/67 99 01/16/19 04:10 01/16/19 05:56 01/16/19 05:56 01/16/19 05:56 01/16/19 05:56 Internal Med - H&P Results - Labs CBC & Chem 7: 01/16/19 13:48 01/16/19 00:30 Labs: BMP 01/16/19 00:30 Sodium 139 Potassium 3.9 Chloride 109 H Carbon Dioxide 17 L BUN 20 Creatinine 0.95 Glucose 108 H Calcium 8.7 Cardiac Enzymes 01/16/19 Range/Units 00:30 Troponin I 0.14 H* (< 0.04) ng/mL Liver Function 01/16/19 Range/Units 00:30 Total Bilirubin 0.8 (0.3-1.0) mg/dL Direct Bilirubin 0.2 (0.0-0.2) mg/dL AST 103 H (13-39) Units/L ALT 70 H (7-52) Units/L Alkaline Phosphatase 81 (34-104) Units/L Albumin 3.9 (3.5-5.7) g/dL Urine 01/16/19 Range/Units 00:44 Urine Color Dark Yellow (Yellow) Urine Clarity Cloudy A (Clear) Urine pH 5.0 (5.0-8.0) pH Units Ur Specific [place] 1.022 (1.010-1.025) Urine Protein 30 H (Neg-Trace) mg/dL Urine Glucose (UA) Normal (Normal) mg/dL - Impressions ITS Impressions Chest X-Ray 01/16/19 00:35 IMPRESSION: Bilateral pleural effusions, greater on the right with associated bibasilar airspace disease. Prominence of the interstitial markings. Correlation for interstitial edema is recommended. D/ / Sunshine De La Torre Cha, MD / Sunshine De La Torre Cha, MD Interpreting Provider: Sunshine De La Torre Cha, MD Dissection 01/16/19 01:29 IMPRESSION: Minimal mural irregularity of the descending aorta of uncertain acuity. No discrete dissection is identified. This may represent developing aortic ulceration without associated inflammatory change. 3.0 cm infrarenal abdominal aortic aneurysm with eccentric mural thrombus. 3 year follow-up CT is advised to document continued stability. 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 Biliary dilatation; consider MRCP for further characterization. Enlarged mediastinal lymph nodes possibly reactive in nature. Airspace disease in the right lower lung suspicious of pneumonia. Emphysema. D/ / Jose Arechiga / Jose Arechiga Interpreting Provider: Jose Arechiga - Time Spent With Patient Total time spent is greater than 50% in coordination of care (as documented) at patient's floor/unit and/or counseling patient: - Attending Attestation I performed a history and physical exam of the patient and discussed management with the resident. I reviewed the resident's note and agree with the documented findings and plan of care. Family history reviewed and found non-contributory. Luisa Fernando is a 53 year old woman with a prior history of anemia and a triple A repair done in 2009. She presented to the ER with complaints of chest pain that has been intermittent over the last 3 days with radiation to her left shoulder and epigastrium. She also reported increasing dyspnea. In the ER her vitals showed a degree of hypotension with systolic ranging in 80-90s coupled with tachycardia. Lab work revealed a lactate of 4.1, troponin 0.14, negative FOBT and there were difficulties with CBC interpretation. On my discussion with the radiocommunications technician, the initial Hgb was about 3.5 but the hematocrit did not correspond appropriately. A second specimen was obtained which reflected a Hgb of 5.3 but again the Hct was not an accurate reflection and therefore given the discrepancies, other techniques were attempted including rewarming, ensuring it was not lipemic, plasmapheresing but to no avail. They did manually note that she was severely anemic based on their slide review but that because her counts are so low, perhaps upon transfusion we may be able to get more accurate indices. Physical exam is remarkable for an asthenic appearing white woman with notable skin/mucous membrane pallor; soft/nontender abdomen. CTA shows significant vasculopathic changes with concerns for aortic ulceration and infrarenal mural thrombus. Suspect the patient has developed type 2 demand NSTEMI from a low flow/oxygenation state in the setting of severe anemia. No anticoagulant/antiplatelet therapy. Serial EKGs if chest pain recurs. Obtain a TTE to rule out vavlulopathy and wall motion abnormalities. The etiology of the anemia is however unclear given the negative stool specimen and she denies any exteriorizing signs of bleeding. The most concern for me would be internal bleeding in the setting of her numerous vascular abnormalities and therefore vascular surgery will be consulted. We should also rule out hemolysis. In the interim will plan to transfuse till above 8g/dl. Her LFT abnormalities are noted. There is suggestion of biliary dilatation on CT however her Tbil is within normal limits. It is a purely hepatocellular pattern of liver injury which could be from exogenous intoxication, congestive hepatopathy noting the e levated BNP or acute liver injury possibly from low flow state. We will need to monitor this closely. Check a hepatitis serology panel in the meantime. SAMARA VERGARA.
[2019-01-16] MEDS ORDERED: Naloxone 0.4 MG/ML INJ IVP PRN (06:10)
[2019-01-16] MEDS ORDERED: Ondansetron 4 MG/2 ML VIAL IVP PRN (06:53)
[2019-01-16] MEDS ORDERED: Acetaminophen 325 MG TABLET PO PRN (06:53)
[2019-01-16] MEDS ORDERED: 0.9 % Sodium Chloride 1,000 ML IVC SCH (07:00)
--- NOTE | 2019-01-16 08:50 | Event Note ---
Date of Encounter: 01/16/19
[2019-01-16 11:46] LABS: Basophils % 0.2 %; Eosinophils % 0.7 %; Hematocrit 21.3 % (35.3-44.9); Immature Granulocytes % 0.8 % (0-4); Lymphocytes # 1.4 K/mcL (0.6-4.6); Mean Corpuscular HGB Conc 24.9 g/dL (31.6-35.5); Mean Corpuscular Hemoglobin 17.7 pg (28.0-33.3); Mean Platelet Volume 9.8 fL (9.4-12.4); Monocytes # 0.4 K/mcL (0.0-1.3); Monocytes % 6.4 %; Nucleated Red Blood Cells 0.7 /100 WBC (0); Platelet Count 237 K/mcL (140-400); Red Cell Distribution Width 22.4 % (11.5-14.5); Segmented Neutrophils % 67.9 %
[2019-01-16 11:49] LABS: Hemoglobin 5.3 g/dL (11.5-15.4); Neutrophils # 4.1 K/mcL (1.6-8.9)
[2019-01-16 11:55] LABS: Anisocytosis 1+ (Not Present); Hypochromasia Present (Not Present); Microcytosis Present (Not Present); Platelet Estimate Normal (Normal)
[2019-01-16 14:25] LABS: Eosinophils % 1.3 %; Hemoglobin 6.5 g/dL (11.5-15.4)
[2019-01-16 14:26] LABS: Basophils % 0.2 %; Eosinophils # 0.1 K/mcL (0.0-0.6); Hematocrit 22.7 % (35.3-44.9); Immature Granulocytes % 0.3 % (0-4); Immature Reticulocyte % 8.3 % (11.0-38.0); Lymphocytes # 1.3 K/mcL (0.6-4.6); Lymphocytes % 20.4 %; Mean Corpuscular HGB Conc 28.6 g/dL (31.6-35.5); Mean Corpuscular Hemoglobin 22.3 pg (28.0-33.3); Monocytes # 0.4 K/mcL (0.0-1.3); Monocytes % 6.5 %; Neutrophils # 4.4 K/mcL (1.6-8.9); Nucleated Red Blood Cells 0.8 /100 WBC (0); Platelet Count 278 K/mcL (140-400); Red Blood Count 2.91 M/mcL (3.82-4.97); Red Cell Distribution Width 23.3 % (11.5-14.5); Retculocyte # 0.03 M/mcL (0.05-0.10); Segmented Neutrophils % 71.3 %; White Blood Count 6.2 K/mcL (4.3-11.1)
[2019-01-16 14:27] LABS: Albumin 3.7 g/dL (3.5-5.7); Albumin/Globulin Ratio 1.5 (1.1-2.2); Bilirubin,Direct 0.3 mg/dL (0.0-0.2); Bilirubin,Indirect 0.5 mg/dL (0.0-1.2); Bilirubin,Total 0.8 mg/dL (0.3-1.0); Globulin 2.5 g/dL (2.4-3.5); Total Protein 6.2 g/dL (6.4-8.9)
[2019-01-16] MEDS ORDERED: Pantoprazole 40 MG VIAL IVP SCH (14:30)
[2019-01-16 14:31] LABS: Troponin I 0.32 ng/mL (< 0.04)
[2019-01-16 14:49] LABS: Hepatitis B Surface Antigen Nonreactive (Nonreactive)
[2019-01-16] MEDS ORDERED: Ipratropium/Albuterol Neb 3 ML IH PRN (14:57)
--- NOTE | 2019-01-16 15:09 | Cardiology Consult Note ---
<Kathie Giordano T - Last Filed: 01/16/19 15:22> Date of Encounter: 01/16/19 Time of Encounter: 12:30 Assessment and Plan (1) Chest pain Current Visit: Yes Status: Acute Ongoing heaviness, SOB, and tachycardia coupled unresolved anemia raise concern for unidentified process in light of CT report. Troponin rising (0.14 to 0.32). Patient unable to undergo any acute cardiac intervention for NSTEMI such as PCI due to anemia. Also cannot receive nitrroglycerin or metoprolol 2/2 soft BP. - Consider aggressive fluid resuscitation plus NG for CP to prevent NG-induced hypotension and improve volume status as echo consistent with slight decreased function - Evaluate whether breathing treatment improves CP - Patient given 2 units PRBCs with lower improvement in Hgb than anticipated - should have been 7.3; latest hgb 6.5. Anemia remains unexplained and should be further evaluated. CBD dilation, quadrupled liver enzymes since admit and po tential obstructive mass on CT requires workup. - Continue holding aspirin, clopidogrel - Check bilateral BP in UE to evaluate for evolving aortic dissection- - Recommend transferring patient to [facility] given possibility of acute decompensation Qualifiers: Chest pain type: unspecified Qualified Code(s): R07.9 - Chest pain, unspecified Discussion w patient/family: The assessment and plan as outlined above was discussed with the patient and/or family members who expressed understanding and agreement. All questions were answered. Thank you for involving us in the care of your patient. Please call with any questions. History of Present Illness Consult date: 01/16/19 History of present illness: Ms. Fernando is a 53 year old female who came to the ED on 01/16/19 around 1 a.m. for evaluation of 3 days of substernal CP she described as "dull" and "heavy" that radiated into her right shoulder and neck/upper back. She also had nausea w/o vomiting, diaphoresis and SOB worse than usual. She was tachycardic, tachypneic and hypoxic on presentation. EKG showed non-specific ST changes that were new compared to 2012 strip, troponin 0.14, BMP 978, INR 1.3. Of note her Hgb was intially 3.5, then immediate repeat was 5.3, with hct 21.3. Patient did appear pale w/ pale mucous membranes per notes. FOBT negative. CTA of chest, abdomen, pelvis read as no acute dissection and no PE. However, patient did have intramural AA thrombus 3 cm in size, aneurysm of SMA/celiac arteries and biliary dilation with abdominal lymphadenopathy. The descending aorta was also described as "irregular" with possible developing ulceration. Report noted 3-vessel CAD. Lungs showed bilateral pleural effusion, slightly worse on right side. PMH significant for AAA s/p stents, (2009), chronic mesenteric ischemia, COPD w/o home O2, CAD. Cardiac workup in 2016 including stress and perfusion testing was negative for ischemia or infarct; EF WNL at 60-65%. Home medications include aspirin 325 mg, clopidogrel 75 mg, simvastatin 80mg daily. Social history significant for smoking. The aspirin and clopidogrel were stopped in light of the unexplained anemia, and the patient was given 2 units PRBCs late this morning. Today patient was alert, responsive, but described persistent "heaviness" in chest w/ SOB. Repeat troponin 0.32, repeat hgb 6.5. She was tachycardic 113-119, hypotensive 97/86, RR 16, 92% O2 on 3L NC, afebrile. Past Med Surg Social Fam HX - Past Medical History Medical history: aortic aneurysm, COPD, coronary artery disease, other Additional medical history: AAA Psychiatric history: no psych history - Past Surgical History Surgical History: vascular surgery Additional surgical history: AAA repair - Social History Smoking Status: Current every day smoker Smokeless Tobacco Status: No Alcohol use: none Drug use: none Medications and Allergies Meclizine HCl [Verticalm] 25 mg PO TID PRN #15 tablet 01/23/17 [Rx] Aspirin 325 PO DAILY 01/16/19 [History] Clopidogrel 75 PO DAILY 01/16/19 [History] Cyclobenzaprine 10 PO HS PRN 01/16/19 [History] Diclofenac Sodium 75 PO BID 01/16/19 [History] Fish Oil 1,000 PO DAILY 01/16/19 [History] Gabapentin 800 PO TID 01/16/19 [History] Garlic 1,000 PO DAILY 01/16/19 [History] Niacin 500 PO DAILY 01/16/19 [History] Simvastatin 80 PO DAILY 01/16/19 [History] Ventolin Hfa PRN 01/16/19 [History] Vit E/Vit E Mx/Squal/Phytostrl 670 PO DAILY 01/16/19 [History] Vitamin B Complex 100 PO DAILY 01/16/19 [History] Vitamin E, Vitamin A,and Vit D 5,000 PO DAILY 01/16/19 [History] rOPINIRole 2 PO HS 01/16/19 [History] Allergy/AdvReac Type Severity Reaction Status Date / Time morphine Allergy Nausea Verified 07/03/15 09:17 All Systems Review: The remainder of the systems were reviewed and are negative unless otherwise stated. - Cardiovascular Cardiovascular: as per HPI, chest pain at rest, diaphoresis, dyspnea at rest, radiating jaw, neck or arm pain, rapid heart rate - Respiratory Respiratory: cough, dyspnea - Gastrointestinal Gastrointestinal: abdominal pain - Hematological/Lymphatic Hematologic/Lymphatic: other (Anemia of uncertain etiology) Physical Examination Vital Signs, Last 4 Hours Temp Pulse Resp BP Pulse Ox 01/16/19 12:17 97.9 F 110 16 97/76 93 01/16/19 11:57 98.3 F 112 18 95/69 96 General: Conversant, No Apparent Distress HEENT: Atraumatic, Normocephaly, Mucus Membranes Moist, Other (Mucus membranes pale, lips bluish) Neck: No JVD, Normal carotid pulses Cardiac: Normal S1 and S2, Other (Tachycardic on auscultation, regular rate) Lungs: No Wheeze, Rales, Rhonchi, Other (Dimished breath sounds bilaterally, worse on right, in all mccarthy) Neuro: Alert and responsive, No focal deficits noted Abdomen: Soft, Non-Tender Skin: No rashes noted on visualized skin Musculoskeletal: No Chest Wall Tenderness Extremities: No Clubbing, No Cyanosis, Other (Mild non-pitting pedal edema. Distal pulses palpable, but right weaker than left. UE palpable bilaterally.) Results 01/16/19 13:48 01/16/19 00:30 Lab Results 01/16/19 01/16/19 01/16/19 00:30 00:30 00:30 WBC Hgb Hct Plt Count INR 1.3 APTT Sodium 139 Potassium 3.9 Chloride 109 H Carbon Dioxide 17 L BUN 20 Creatinine 0.95 Glucose 108 H Calcium 8.7 Total Bilirubin 0.8 AST 103 H ALT 70 H Alkaline Phosphatase 81 Troponin I 0.14 H* B-Natriuretic Peptide 978 H Lipase 12 01/16/19 01/16/19 01/16/19 01:31 03:30 13:48 WBC 6.0 Hgb 5.3 L* Hct 21.3 L Plt Count 237 INR APTT 25.8 L Sodium Potassium Chloride Carbon Dioxide BUN Creatinine Glucose Calcium Total Bilirubin 0.8 AST 491 H ALT 287 H Alkaline Phosphatase 92 Troponin I 0.32 H* B-Natriuretic Peptide Lipase - Imaging and Cardiology Chest Xray: report reviewed, image reviewed Stress Test: report reviewed Echo: report reviewed, image reviewed (No pericardial effusion, no thoracic aortic dissection within limits of echo study, mildly reduced myocardial function compared to 2016) - EKG Interpretation EKG results cardiology: personally reviewed, sinus rhythm, other (NSTEMI w/ unspecified ST changes compared to 2011) Consult Discharge Plan - Plan Referrals: Mary Kate Denny, PROJECT ASSOCIATE [Primary Care Provider] - <Dee Powell - Last Filed: 01/16/19 17:06> Date of Encounter: 01/16/19 - Attending Attestation I examined this patient and my medical decision-making was reviewed with the Resident Physician. I agree with the documented findings, disposition and treatment plan as described. Ms. Fernando is a 53 yo F with h/o smoking and PAD with mesenteric ischemia s/p mesenteric bypass. Patient presents with chest heaviness and SOB. Reports symptoms began approximately on Monday morning when she felt unwell overall. Symptoms of chest discomfort have been persistent since that time. Describes SS chest discomfort associated with L shoulder pain and L neck and upper back pain. States that she has chronic abdominal discomfort particularly with eating. However, her abdominal discomfort may also be worse than usual. At the bedside, the patient is AAOx3, talking on the phone in NAD. VS demonstrate borderline hypotensive BP and tachycardia. On exam, she has reproducible sternal tenderness upon palpation. Soft 2/6 systolic murmur LSB, no rub or gallop. Air entry on pulmonary auscultation is poor bilaterally Abdomen with hypoactive BS, tenderness to palpation Poor distal pulses bilaterally, diminished UE L radial pulse No significant LE edema ECG 01/16/19 00:28 demonstrates sinus tachy, HR 122 bpm, possible old septal infarct, diffuse nonspecific ST and T abnormalities Echo 01/16/[address] Ab/P report reviewed Labs reviewed; troponin elevation 0.32, Hgb 6.5, abnormal LFTs Impression/Plan: 1. Troponin elevation: Appears secondary to demand ischemia in setting of profound anemia. However, LV systolic function is mildly reduced but global in appearance - chronicity unknown. Unable to consider invasive evaluation with [place] due to profound anemia. Recommend serial troponins and supportive care. Chest discomfort is atypical with some reproducibility on exam by sternal palpation. Patient sitting up and talking on the phone in NAD at the bedside. 2. Acute anemia: Etiology of acute anemia remains unexplained. FOBT apparently negative and patient denies active bleeding. CT Ab/P reviewed demonstrating no definite dissection but with a "mural irregularity of the descending aorta...may represent developing aortic ulceration" and with aneurysm of the abdominal aorta with eccentric mural thrombus. It is not clear why patie nt is acutely anemic but may include a subacute aortic concern. Echo demonstrates normal aortic root, no pericardial effusion or aortic regurgitation to suggest a thoracic problem. Upper extremity BPs are not considerably different. However, recommend abdominal aortic evaluation by Vascular team. Otherwise, need also to consider a GI etiology given possible obstructing lesion. 3. Abnormal LFTs: Prominent CBD and possible obstructing lesion could not be excluded by CT. Recommend GI evaluation. Personally spoke with Dr. Jerez regarding this patient's overall condition. I expressed concern about lack of clarity regarding acute unexplained profound anemia and concern that the patient could decompensate quickly. I suggested that he discuss case with Vascular Surgery and GI for their recommendations. However in my opinion, this patient would benefit from transfer to a tertiary care center for advanced care. Assessment and Plan Discussion w patient/family: The assessment and plan as outlined above was discussed with the patient and/or family members who expressed understanding and agreement. All questions were answered. Thank you for involving us in the care of your patient. Please call with any questions. History of Present Illness History of present illness: Ms. Fernando is a 53 year old female All Systems Review: The remainder of the systems were reviewed and are negative Physical Examination Vital Signs, Last 4 Hours Temp Pulse Resp BP Pulse Ox 01/16/19 16:14 98.7 F 120 20 100/76 98 01/16/19 15:59 98.8 F 123 20 114/71 94 01/16/19 15:53 98.4 F 113 18 97/77 01/16/19 15:33 97/77 01/16/19 15:32 109/73 01/16/19 15:11 113 18 97/76 92 Results 01/16/19 13:48 01/16/19 00:30 Lab Results 01/16/19 01/16/19 01/16/19 00:30 00:30 00:30 WBC Hgb Hct Plt Count INR 1.3 APTT Sodium 139 Potassium 3.9 Chloride 109 H Carbon Dioxide 17 L BUN 20 Creatinine 0.95 Glucose 108 H Calcium 8.7 Total Bilirubin 0.8 AST 103 H ALT 70 H Alkaline Phosphatase 81 Troponin I 0.14 H* B-Natriuretic Peptide 978 H Lipase 12 01/16/19 01/16/19 01/16/19 01:31 03:30 13:48 WBC 6.0 6.2 Hgb 5.3 L* 6.5 L Hct 21.3 L 22.7 L Plt Count 237 278 INR APTT 25.8 L Sodium Potassium Chloride Carbon Dioxide BUN Creatinine Glucose Calcium Total Bilirubin AST ALT Alkaline Phosphatase Troponin I B-Natriuretic Peptide Lipase 01/16/19 13:48 WBC Hgb Hct Plt Count INR APTT Sodium Potassium Chloride Carbon Dioxide BUN Creatinine Glucose Calcium Total Bilirubin 0.8 AST 491 H ALT 287 H Alkaline Phosphatase 92 Troponin I 0.32 H* B-Natriuretic Peptide Lipase
[2019-01-16 15:19] LABS: Hepatitis B Core IgM Nonreactive (Nonreactive); Hepatitis C Virus Antibody Nonreactive (Nonreactive)
[2019-01-16 15:22] LABS: Hepatitis A Antibody IgM Nonreactive (Nonreactive)
[2019-01-16 15:45] LABS: Anisocytosis 1+ (Not Present); Hypochromasia Present (Not Present); Microcytosis Present (Not Present); Platelet Estimate Normal (Normal); Poikilocytosis 1+ (Not Present)
[2019-01-16 16:22] VITALS: BP 100/76
--- NOTE | 2019-01-16 20:31 | Discharge Summary ---
Date of Encounter: 01/16/19 Time of Encounter: 16:00 - Discharge Diagnosis (1) Anemia due to acute blood loss Priority: Primary Status: Acute Assessment and Plan: 53-year-old female with a PMH of AAA, CAD, and COPD who presented to [facility] on 01/16/19 with a chief complaint of chest pain. Reported that it began in her shoulder yesterday, and in her chest 3 days ago. Pain was described as a dull pressure-like sensation associated with intermittent sharp, stabbing pain. Also reported some epigastric pain, nausea, and mild shortness of breath. Upon arrival, vital signs demonstrated an elevated heart rate at 110 bpm and low blood pressure at 96/63. Labs were significant for an elevated lactate at 4.1, BNP 978, AST 103, ALT 70, and elevated troponin at 0.14. Subsequent lactate was 3.4 Hemoglobin was noted to be 5.3 on arrival with no clear source of acute blood loss such as blood in stools. CT abdomen showed aortic ulceration/minimal irregularity of descending aorta. This was thought to be her possible source of bleed. She was transfused 2 unit PRBC but hemoglobin only came up to 6.5. She was borderline hypotensive in the 90s and was seen by cardiology for elevated troponins and new EKG changes. Due to concern for possible ongoing aortic vessel bleed with chest pain and CT scan showing changes suggestive of aortic ulceration, she was recommended for transfer to a tertiary center by both vascular surgery and cardiology. [facility] was contacted and she was transferred to their service She also had worsening transaminitis which may be secondary to hypotension. Even though FOBT was negative, GI bleed was still a possibility and she was started on protonix as well during her hospital course. (2) Chest pain Priority: Primary Status: Acute Qualifiers: Chest pain type: unspecified Qualified Code(s): R07.9 - Chest pain, unspecified (3) Elevated troponin Priority: Primary Status: Acute Hospital course: Ms. Fernando is a 53 year old female - Time Spent with Patient Total time spent providing and/or coordinating discharge services: - Discharge Medications Prescriptions: No Action Meclizine HCl [Verticalm] 25 mg PO TID PRN #15 tablet PRN Reason: Dizziness Vitamin E, Vitamin A,and Vit D 5,000 PO DAILY Vitamin B Complex 100 PO DAILY Vit E/Vit E Mx/Squal/Phytostrl 670 PO DAILY Ventolin Hfa PRN PRN Reason: Shortness Of Breath Simvastatin 80 PO DAILY rOPINIRole 2 PO HS Niacin 500 PO DAILY Garlic 1,000 PO DAILY Gabapentin 800 PO TID Fish Oil 1,000 PO DAILY Diclofenac Sodium 75 PO BID Cyclobenzaprine 10 PO HS PRN PRN Reason: Pain Clopidogrel 75 PO DAILY Aspirin 325 PO DAILY Home Medications: Meclizine HCl [Verticalm] 25 mg PO TID PRN #15 tablet 01/23/17 [Rx] Aspirin 325 PO DAILY 01/16/19 [History] Clopidogrel 75 PO DAILY 01/16/19 [History] Cyclobenzaprine 10 PO HS PRN 01/16/19 [History] Diclofenac Sodium 75 PO BID 01/16/19 [History] Fish Oil 1,000 PO DAILY 01/16/19 [History] Gabapentin 800 PO TID 01/16/19 [History] Garlic 1,000 PO DAILY 01/16/19 [History] Niacin 500 PO DAILY 01/16/19 [History] Simvastatin 80 PO DAILY 01/16/19 [History] Ventolin Hfa PRN 01/16/19 [History] Vit E/Vit E Mx/Squal/Phytostrl 670 PO DAILY 01/16/19 [History] Vitamin B Complex 100 PO DAILY 01/16/19 [History] Vitamin E, Vitamin A,and Vit D 5,000 PO DAILY 01/16/19 [History] rOPINIRole 2 PO HS 01/16/19 [History] Allergies/Adverse Reactions: Allergy/AdvReac Type Severity Reaction Status Date / Time morphine Allergy Nausea Verified 07/03/15 09:17 Date of admission: 01/16/19 06:49 Primary care physician: USHA Cobian Consults: 01/16/19 05:39 Consult to Vascular Surgery [CONS] Stat Consulting Provider: Vascular Surgery Archana Reason for Consult: vasculopath with symptomatic anemia, hx of AAA, abnormal CT Time Notified: 04:00 Call Completed: Yes 01/16/19 11:40 Consult to Cardiology [CONS] Routine Comment: Consulting Provider: Cardiology [employer] Reason for Consult: chest pain Call Completed: Yes 01/16/19 14:16 Consult to Gastroenterology [CONS] Routine Consulting Provider: Gastroenterology Archana Reason for Consult: anemia r/o GI bleed Call Completed: Yes - Constitutional Vitals: Temp Pulse Resp BP Pulse Ox 98.7 F 120 20 100/76 98 01/16/19 16:14 01/16/19 16:14 01/16/19 16:14 01/16/19 16:14 01/16/19 16:14 Exam: General: Conversant, thin appearing, pale Head: atraumatic, normocephalic; mucous membrane pallor Eye: PERRL, EOMI, conjuntiva pale Neck: Supple, trachea midline; No lymphadenopathy Respiratory: CTAB. No accessory muscle use, wheezes, rales, or rhonchi Cardiovascular: Tachycardia, +S1, +S2; no murmurs, rubs, gallops Abdomen: Soft, nontender Extremities: warm, radial pulses palpable and symmetrical; +2 pitting edema in the feet bilaterally extending to just above the ankles Psychiatric: Normal affect, normal mood Skin: Dry, intact - Patient Status Disposition: Transfer Critical Access Hosp Condition: Serious - Discharge Instructions Follow Up With: Mary Kate Denny CNP [Primary Care Provider] -
--- NOTE | 2019-01-16 23:23 | Vascular/Endovasc Consult Note ---
Date of Encounter: 01/16/19 Time of Encounter: 15:35 Assessment and Plan (1) Atherosclerotic ulcer of aorta Status: Acute The patient's CT scan was reviewed with the hospitalist service. The patient has luminal irregularities of the ascending aorta. We will compare with a CT scan from 2009 the changes are new. Given that the patient has right sided upper chest pain a pending aortic dissection cannot be ruled out. Given that this is the reason of the ascending aorta and his procedures not performed at [facility], the patient will be transferred to [place] for further evaluation and management. At this time progressive regulation of her blood pressure is warranted. 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 Mesenteric artery stent. She denies intestinal angina, unexpected weight loss or food aversion. Patient's mid to distal superior mesenteric artery appears to well collateralized. (3) Acute anemia Status: Chronic The patient has acute versus chronic anemia. She is no evidence of active bleeding at this time iris is required multiple units of packed red blood cells. At this time she is hemodynamically stable. 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 She denies any abdominal flank or back pain. There is no evidence of rupture at this time. - History of Present Illness Consult date: 01/16/19 Requesting physician: Luz Elena Beatty Consult reason: Aortic ulceration Chief complaint: Chest pain and anemia History of present illness: Ms. Fernando is a 53 year old female Past Med Surg Social Fam HX - Past Medical History Medical history: aortic aneurysm, COPD, coronary artery disease, other Additional medical history: AAA Psychiatric history: no psych history - Past Surgical History Surgical History: vascular surgery Additional surgical history: AAA repair - Social History Smoking Status: Current every day smoker Smokeless Tobacco Status: No Alcohol use: none Drug use: none Medications and Allergies Meclizine HCl [Verticalm] 25 mg PO TID PRN #15 tablet 01/23/17 [Rx] Aspirin 325 PO DAILY 01/16/19 [History] Clopidogrel 75 PO DAILY 01/16/19 [History] Cyclobenzaprine 10 PO HS PRN 01/16/19 [History] Diclofenac Sodium 75 PO BID 01/16/19 [History] Fish Oil 1,000 PO DAILY 01/16/19 [History] Gabapentin 800 PO TID 01/16/19 [History] Garlic 1,000 PO DAILY 01/16/19 [History] Niacin 500 PO DAILY 01/16/19 [History] Simvastatin 80 PO DAILY 01/16/19 [History] Ventolin Hfa PRN 01/16/19 [History] Vit E/Vit E Mx/Squal/Phytostrl 670 PO DAILY 01/16/19 [History] Vitamin B Complex 100 PO DAILY 01/16/19 [History] Vitamin E, Vitamin A,and Vit D 5,000 PO DAILY 01/16/19 [History] rOPINIRole 2 PO HS 01/16/19 [History] Allergy/AdvReac Type Severity Reaction Status Date / Time morphine Allergy Nausea Verified 07/03/15 09:17 All Systems Review: The remainder of the systems were reviewed and are negative Consult Discharge Plan - Plan Referrals: Mary Kate Denny, SEWING ROOM SUPERVISOR [Primary Care Provider] -
--- NOTE | 2019-01-17 15:02 | Electrocardiograph Report ---
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
--- NOTE | 2019-01-17 18:12 | Electrocardiograph Report ---
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
== END 2019-01-16 17:19 | disposition critical access hospital (66) | DRG 197 ==
LOC: EMEROOARM 00:24 → 2NNU 06:49
PROVIDERS: ADMIT Internal Medicine; ATTEND Internal Medicine